=== PATIENT | female | born 1995 | race Caucasian/White ===

== ENCOUNTER 2018-03-01 06:07 | Emergency (ER) | payer BC ==
[~2018-03-01] VITALS: Ht 160 cm; Wt 63.5 kg
--- NOTE | 2018-03-01 06:50 | NUR ---
Pt walked in with her mother c/o redness and swelling on her neck, abdomen, left arm pit after taking Haegarda. Pt is A, O/4, moves all extremities without difficulty, on RA. Pt brought with her the antidote that came with the medication.
--- NOTE | 2018-03-01 06:58 | NUR ---
VERBAL ORDERS PER DR. FRANZ TO ADMIN PT HOME MEDICATION FIRAZYR SQ 30MG/3ML PREFILLED SYRINGE SQ PRESCRIBED FOR "SWELLING OF NECK, LEFT ARMPIT AND ABD SWELLING S/P TAKING HAEGARDA MIDNIGHT. PT MEDICATED AND TOLERATED WELL.
--- NOTE | 2018-03-01 07:17 | NUR ---
Report given to Edenilson, Charge Nurse, for VIP[facility].
--- NOTE | 2018-03-01 07:44 | NUR ---
VERBALIZED SHE FEELS BETTER, TALKING WITH MOM AT BEDSIDE WITHOUT DIFFICULTY,VS WNL
--- NOTE | 2018-03-01 08:35 | NUR ---
Patient discharged to home in stable condition. Written and verbal after care instructions given. Patient verbalizes understanding of instruction.
[2018-03-01 08:37] VITALS: BP 115/66
== END 2018-03-01 08:37 | disposition home or self-care (01) ==
LOC: ER 06:10
DX: D84.1 Defects in the complement system (principal); Z98.890 Other specified postprocedural states
CPT/HCPCS: 99283; A4606; Z7610